=== PATIENT | female | born 1970 | race African-American/Black ===

== ENCOUNTER 2018-05-07 20:00 | Emergency (ER) | payer MEDICAID ==
[~2018-05-07] VITALS: Ht 172.7 cm; Wt 71.0 kg
[2018-05-07 21:13] VITALS: BP 150/74
== END 2018-05-07 21:13 | disposition left against medical advice (07) ==
LOC: ER 21:00
DX: R51 Headache (principal); I10 Essential (primary) hypertension; Z53.21 Procedure and treatment not carried out due to patient leaving prior to being seen by health care provider; Y08.89XA Assault by other specified means, initial encounter; Y93.89 Activity, other specified; Y92.89 Other specified places as the place of occurrence of the external cause; Y99.8 Other external cause status